=== PATIENT | female | born 1945 | race Hispanic/Latino ===

== ENCOUNTER 2016-12-09 14:11 | Emergency (ER) | payer MEDICARE, OTHER ==
[2016-12-09 14:11] VITALS: BMI 25.6
[2016-12-09 14:22] VITALS: BP 144/63; PULSE 68; RESP 19; TEMP 97.7; O2SAT 100
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
--- NOTE | 2016-12-09 15:20 | RAD ---
HISTORY: pain s/p trauma COMPARISON: No prior FINDINGS: BONES: Normal. No fracture. JOINTS: Normal. No osteoarthritis. SOFT TISSUE: Fifth toe soft tissue swelling. OTHER FINDINGS: None . IMPRESSION: No fracture.
== END 2016-12-09 15:56 | disposition home or self-care (01) ==
LOC: ED 14:11
DX: M79.675 Pain in left toe(s) (principal)

== ENCOUNTER 2017-09-27 12:01 | Emergency (ER) | payer MEDICARE, SELFPAY ==
[2017-09-27 12:01] VITALS: BMI 25.6
[2017-09-27 12:07] VITALS: TEMP 97.8; O2SAT 98
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
[2017-09-27] MEDS ORDERED: guaiFENesin DM 200 mg-20 mg/10 ml UD PO ONE (12:20)
[2017-09-27] MEDS: Albuterol-Ipratrop 3 mg / 0.5 (3 ml) UD IH SCH ×3 (12:34→13:20)
[2017-09-27 12:40] LABS: VENOUS BLOOD GAS BASE EXCESS 2.4 mmol/L (0.0-2.0); VENOUS BLOOD GAS PO2 37 mm/Hg (30-55); VENOUS BLOOD PH 7.32 (7.32-7.43)
[2017-09-27 12:43] LABS: BASO # 0.01 K/mm3 (0.0-2.0); BASO % 0.2 % (0.0-3.0); EOS # 0.1 (0.0-0.7); EOS % 2.1 % (1.5-5.0); GRAN # 3.03 (1.4-6.5); GRAN % 53.8 % (50.0-68.0); HEMOGLOBIN 12.4 g/dL (12.0-16.0); LYMPH # 2.2 (1.2-3.4); LYMPH % 38.4 % (22.0-35.0); MEAN CELL VOLUME 89.1 fl (80.0-105.0); MEAN CORPUSCULAR HEMOGLOBIN 30.2 pg (25.0-35.0); MEAN CORPUSCULAR HGB CONC 33.9 g/dl (31.0-37.0); MEAN PLATELET VOLUME 8.7 fl (7.0-11.0); MONO # 0.3 (0.1-0.6); MONO % 5.5 % (1.0-6.0); RBC 4.11 10^6/uL (3.5-6.1); RED CELL DISTRIBUTION WIDTH 13.8 % (11.5-14.5); WHITE BLOOD COUNT 5.6 10^3/ul (4.5-11.0)
[2017-09-27 12:53] LABS: BLOOD UREA NITROGEN 14 mg/dL (7-21); CALCIUM 10.1 mg/dL (8.4-10.5); GFR AFRICAN-AMERICAN > 60; GFR NON-AFRICAN AMERICAN > 60
[2017-09-27 13:06] LABS: B-TYPE NATRIURETIC PEPTIDE 416 pg/mL (0-450); TROPONIN I < 0.01 ng/mL
--- NOTE | 2017-09-27 13:08 | RAD ---
HISTORY: coughing x 2 weeks, sob today COMPARISON: 02/01/2016 TECHNIQUE: Chest PA and lateral FINDINGS: LUNGS: No active pulmonary disease. PLEURA: No significant pleural effusion identified. No pneumothorax apparent. CARDIOVASCULAR: Normal. OSSEOUS STRUCTURES: Sternal wires VISUALIZED UPPER ABDOMEN: Normal. OTHER FINDINGS: None. IMPRESSION: No active disease.
[2017-09-27 14:09] VITALS: BP 140/54; PULSE 102; RESP 20
--- NOTE | 2017-09-28 23:37 | CARD ---
APPROVED REPORT EKG Measurement Heart [id number] DC [id number] <Conclusion> Sinus rhythm with short DC Otherwise normal ECG
== END 2017-09-27 14:11 | disposition home or self-care (01) ==
LOC: ED 12:01
DX: J45.909 Unspecified asthma, uncomplicated (principal); R07.89 Other chest pain

== ENCOUNTER 2017-10-23 16:50 | Emergency (ER) | payer MEDICARE, SELFPAY ==
[2017-10-23 16:50] VITALS: BMI 25.6
[2017-10-23 17:00] VITALS: BP 182/66; PULSE 62; RESP 16; TEMP 97.9; O2SAT 100
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
--- NOTE | 2017-10-23 18:29 | RAD ---
PROCEDURE: Left Wrist Radiographs. HISTORY: fall r/o fx COMPARISON: None. FINDINGS: BONES: There is no acute displaced fracture or bone destruction. Bone alignment is normal. There is periarticular bone demineralization. JOINTS: Normal. No dislocation. SOFT TISSUES: Normal. OTHER FINDINGS: None. IMPRESSION: No acute fracture or dislocation.
--- NOTE | 2017-10-23 18:30 | RAD ---
PROCEDURE: Left Hand Radiographs. HISTORY: fall r/o fx COMPARISON: None. FINDINGS: BONES: There is no acute displaced fracture or bone destruction. Bone alignment is normal. There is diffuse bone demineralization. JOINTS: Normal. SOFT TISSUES: Normal. OTHER FINDINGS: None. IMPRESSION: No acute fracture or dislocation.
== END 2017-10-23 18:06 | disposition home or self-care (01) ==
LOC: ED 16:50
DX: S63.502A Unspecified sprain of left wrist, initial encounter (principal); W01.0XXA Fall on same level from slipping, tripping and stumbling without subsequent striking against object, initial encounter; I10 Essential (primary) hypertension; E03.9 Hypothyroidism, unspecified

== ENCOUNTER 2018-05-12 12:04 | Inpatient (IN) | payer MEDICARE, OTHER ==
[2018-05-12] MEDS ORDERED: Lidocaine 5% Patch TD ONE (12:47)
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
[2018-05-12 14:35] LABS: ALB/GLOB RATIO 1.3 (1.1-1.8); ALBUMIN 3.8 g/dL (3.0-4.8); ALT/SGPT 24 U/L (7-56); AST/SGOT 33 U/L (14-36); BLOOD UREA NITROGEN 11 mg/dL (7-21); CALCIUM 8.6 mg/dL (8.4-10.5); GFR NON-AFRICAN AMERICAN > 60
--- NOTE | 2018-05-12 14:35 | CT ---
Date of service: 05/12/2018 PROCEDURE: CT Cervical Spine without contrast HISTORY: fall COMPARISON: None available. TECHNIQUE: Axial computed tomography images were obtained of the cervical spine without the use of intravenous contrast. Coronal and sagittal reformatted images were created and reviewed. Radiation dose: Total exam DLP = 542.3 mGy-cm. This CT exam was performed using one or more of the following dose reduction techniques: Automated exposure control, adjustment of the mA and/or kV according to patient size, and/or use of iterative reconstruction technique. FINDINGS: VERTEBRAE: No fracture. Normal alignment. No destructive bony lesion. DISCS/SPINAL CANAL/NEURAL FORAMINA: No significant central canal or neural foraminal stenosis. Disc degeneration at C5-6 and C6-7 PARASPINAL SOFT TISSUES: Unremarkable. OTHER FINDINGS: None. IMPRESSION: No acute findings
--- NOTE | 2018-05-12 14:35 | CT ---
Date of service: 05/12/2018 PROCEDURE: CT HEAD WITHOUT CONTRAST. HISTORY: dizziness COMPARISON: 05/10/2016 TECHNIQUE: Axial computed tomography images were obtained through the head/brain without intravenous contrast. Radiation dose: Total exam DLP = 993.59 mGy-cm. This CT exam was performed using one or more of the following dose reduction techniques: Automated exposure control, adjustment of the mA and/or kV according to patient size, and/or use of iterative reconstruction technique. FINDINGS: HEMORRHAGE: No intracranial hemorrhage. BRAIN: No mass effect or edema. Severe chronic microvascular changes are seen in the periventricular white matter. There is focal encephalomalacia in the right frontal lobe VENTRICLES: Unremarkable. No hydrocephalus. CALVARIUM: Unremarkable. PARANASAL SINUSES: Unremarkable as visualized. No significant inflammatory changes. MASTOID AIR CELLS: Unremarkable as visualized. No inflammatory changes. OTHER FINDINGS: None. IMPRESSION: Severe chronic microvascular changes. No acute intracranial findings
[2018-05-12 14:41] LABS: BASO # 0.01 K/mm3 (0.0-2.0); BASO % 0.2 % (0.0-3.0); EOS # 0.1 (0.0-0.7); EOS % 1.8 % (1.5-5.0); GRAN # 2.86 (1.4-6.5); GRAN % 56.1 % (50.0-68.0); HEMOGLOBIN 11.7 g/dL (12.0-16.0); LYMPH # 1.8 (1.2-3.4); LYMPH % 35.2 % (22.0-35.0); MEAN CELL VOLUME 88.8 fl (80.0-105.0); MEAN CORPUSCULAR HEMOGLOBIN 29.8 pg (25.0-35.0); MEAN CORPUSCULAR HGB CONC 33.5 g/dl (31.0-37.0); MEAN PLATELET VOLUME 9.4 fl (7.0-11.0); MONO # 0.3 (0.1-0.6); MONO % 6.7 % (1.0-6.0); RBC 3.93 10^6/uL (3.5-6.1); RED CELL DISTRIBUTION WIDTH 13.7 % (11.5-14.5); WHITE BLOOD COUNT 5.1 10^3/uL (4.5-11.0)
[2018-05-12 14:47] LABS: TROPONIN I < 0.01 ng/mL
[2018-05-12 15:43] LABS: INR 1.12; PROTHROMBIN TIME 12.8 SECONDS (9.4-12.5)
--- NOTE | 2018-05-12 17:08 | CARD ---
APPROVED REPORT Date of service: 05/12/2018 EKG Measurement Heart [id number] <Conclusion> Sinus bradycardia Otherwise normal ECG
[2018-05-12 17:51] VITALS: BMI 26.5
--- NOTE | 2018-05-12 22:21 | HP ---
DATE OF EXAM: HISTORY OF PRESENT ILLNESS: The patient is a 73-year-old female of origin. The patient is seen in the emergency room. She presented with ataxia, unstable gait, and weakness as patient denies any history of chest pain. She has no headache and the patient's past history significant that she has history of coronary artery disease. The patient has had treatment for ruptured aortic aneurysm of the ascending aorta repaired several years ago. The patient has past history of bariatric surgery. She has history of anastomotic ulcer secondary to bariatric surgery at the anastomotic site. 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 The patient also has a history of gastritis. SOCIAL HISTORY: She does not smoke and does not drink alcohol. ALLERGIES: SHE HAS ALLERGY TO INDOMETHACIN WHICH IS INDOCIN. SHE HAS ALLERGY TO IODINE CONTAINING DYES, CONTRAST MEDIA. PHYSICAL EXAMINATION GENERAL: The patient says that she feels better, lying down in bed in the emergency room. The patient is able to answer all questions. HEENT: On examination, her head is normocephalic. No masses or defects are noted. NECK: Thyroid is not enlarged. The patient's JVP is flat. Carotid pulses are present bilaterally. HEART: Normal sinus rhythm. S1 and S2 present. No murmurs. LUNGS: Trachea central. Breath sounds are vesicular. No adventitious sounds are heard. ABDOMEN: Soft. Liver and spleen not palpable. No organomegaly. RECTAL: The patient's rectal examination is deferred. CENTRAL NERVOUS SYSTEM: The patient is conscious, rational, and oriented. Cranial nerves II through XII intact. Sensory and motor functions are not completely abnormal. The patient has ataxia, consisted of cerebral dysfunction. There are no focal neurological deficits. LABORATORY DATA: The patient's blood work done in the emergency room, the hemoglobin is 11.7. The patient's chemistry; the blood sugar is 111, BUN and creatinine are within normal range. The patient's liver enzymes are normal. The patient will be admitted for observation, because she is not able to ambulate with poor balance and abnormal gait. Neurological evaluation will be done by Dr. Segura. She will also have cardiac evaluation because of her past medical history. MEDICATIONS: She was on Synthroid 25 mcg daily, potassium 20 mEq daily, aspirin 81 mg daily, and enalapril 10 mg daily. The patient was on amlodipine 2.5 mg daily. DIET: Heart healthy diet. Condition clinically stable and overall prognosis is guarded. Gloria Ling MD [id number]
[2018-05-13] MEDS ORDERED: Pantoprazole 20 mg EC Tab PO SCH (06:00)
[2018-05-13 06:32] LABS: BLOOD UREA NITROGEN 9 mg/dL (7-21); CALCIUM 8.1 mg/dL (8.4-10.5); GFR NON-AFRICAN AMERICAN > 60
[2018-05-13 06:40] LABS: BASO # 0.01 K/mm3 (0.0-2.0); BASO % 0.3 % (0.0-3.0); EOS # 0.2 (0.0-0.7); EOS % 3.9 % (1.5-5.0); GRAN # 1.85 (1.4-6.5); GRAN % 47.7 % (50.0-68.0); LYMPH # 1.5 (1.2-3.4); LYMPH % 39.8 % (22.0-35.0); MEAN CORPUSCULAR HGB CONC 34.1 g/dl (31.0-37.0); MEAN PLATELET VOLUME 9.3 fl (7.0-11.0); MONO # 0.3 (0.1-0.6); MONO % 8.3 % (1.0-6.0); RBC 3.67 10^6/uL (3.5-6.1); RED CELL DISTRIBUTION WIDTH 13.7 % (11.5-14.5); WHITE BLOOD COUNT 3.9 10^3/uL (4.5-11.0)
[2018-05-13] MEDS: Levothyroxine 25 MCG TAB PO SCH (08:28)
[2018-05-13] MEDS: Potassium Chloride 20 mEq ER Tab PO SCH (10:02)
[2018-05-13] MEDS ORDERED: Alum-Mag Hydrox-Simethicone Susp (30 mL) PO PRN (10:16)
--- NOTE | 2018-05-13 12:18 | PN ---
DATE: 05/13/2018 SUBJECTIVE: The patient is in [facility] in [place], room 372, bed 2. The patient is a 73-year-old female. She is of origin. She has been seen this morning. She was admitted with weakness, ataxia, unstable gait. The patient has past history of osteoarthritis involving the cervical, thoracic spine. The patient has history of repair of ruptured aortic aneurysm, ascending aorta. Many years ago, the patient had coronary artery disease and angioplasty. The patient has history of bariatric surgery for obesity. She has a history of anastomotic ulcer with gastritis. The patient is still complaining of weakness and she says she has a cough. She also complains of mild headache. PHYSICAL EXAMINATION: VITAL SIGNS: The pulse is ranging from 47-63, the patient's blood pressure 128/43, O2 sat is 96% on room air. HEENT: The patient's head is normocephalic. No injuries noted. NECK: The thyroid is not enlarged. She is mildly hypothyroid. LUNGS: Trachea central. Breath sounds are vesicular. No adventitious sounds. HEART: Normal sinus rhythm. Sinus bradycardia. ABDOMEN: Soft. Liver and spleen not palpable. CHIMNEY MECHANIC: No focal deficits are noted. LABORATORY DATA: The hemoglobin was 11. The patient's chemistry was unremarkable. Basically, the blood sugar was 134. It is dropped to 91 today. The patient's urine is not noted. ASSESSMENT AND PLAN: The patient is being evaluated by neurologist. We will have a printer assistant see the patient also because of the transient bradycardia. The patient will need a urinalysis done and also sputum study. The patient's CBC shows significant increase of lymphocytes with monocytes. This is suggestive of viral infection. However, we will do the Carlos Bucio virus study also. We will wait for the neurologist to evaluate the patient and then we can consider the patient for further treatment in subacute rehabilitation or maybe Transitional Care Unit. Gloria Ling MD [facility]
[2018-05-13 12:34] LABS: PH,URINE 6.5 (4.7-8.0); URINE APPEARANCE CLEAR (CLEAR); URINE BILIRUBIN NEGATIVE (NEGATIVE); URINE BLOOD NEGATIVE (NEGATIVE); URINE COLOR YELLOW (YELLOW); URINE GLUCOSE (UA) NEGATIVE (NEGATIVE); URINE LEUKOCYTE ESTERASE NEGATIVE Leu/uL (NEGATIVE); URINE PROTEIN NEGATIVE mg/dL (<30 mg/dL); URINE UROBILINOGEN 0.2 E.U./dL (<1 E.U./dL)
[2018-05-13] MEDS: Pantoprazole 40 mg EC Tab PO SCH (15:50)
--- NOTE | 2018-05-13 19:18 | CON ---
DATE: 05/13/2018 CHIEF COMPLAINT: Generalized weakness, lightheadedness. HISTORY OF PRESENT ILLNESS: This is a 73-year-old woman with history of aortic stenosis since 2002, history of degenerative joint disease of the cervicothoracic area, history of bariatric surgery, osteoarthritis, who presented also with complaint of generalized weakness and very fatigued and mild lightheadedness. CAT scan had showed acute abnormalities of the cervical spine. CT showed C5-C6 to T6-T7 disk degeneration; otherwise, no focal neurological weakness or deficits seen on neuro exam. She was on aspirin 81 mg for stroke prevention. Otherwise, her labs are pretty normal. Orthostatics were normal. There is a small bradycardia of 55, lowest being 51. PAST MEDICAL HISTORY: As above. SOCIAL HISTORY: No illicit drug use, smoking, or EtOH abuse. MEDICATIONS: Reviewed by nurse's reconciliation sheet. ALLERGIES: INDOMETHACIN. FAMILY HISTORY: Noncontributory. REVIEW OF SYSTEMS: A 14-point review of systems is negative except as per the HPI. LABORATORY DATA: Sodium is 133, potassium 4.3, chloride 102, carbon dioxide 36, BUN of 19, creatinine 1. Random glucose 91. PHYSICAL EXAMINATION: GENERAL: The patient is sitting up in bed, in no acute distress. VITAL SIGNS: Temperature 98.2, pulse rate 54, blood pressure 135/44, respiratory rate 18, oxygen saturation 90% on room air. HEENT: Atraumatic, normocephalic. PERRLA. Extraocular muscles intact. NECK: Supple. No JVD. No adenopathy noted. LUNGS: Clear to auscultation. No adventitious sounds. HEART: S1 and S2. Normal rate and rhythm. No murmurs, rubs, or gallops. ABDOMEN: Soft, nontender, and nondistended. Bowel sounds are heard. EXTREMITIES: No clubbing. No cyanosis. Peripheral pulses 2+ felt bilaterally. NEUROLOGICAL: The patient is alert and oriented to person, place, month, and year. Speech is fluent without any errors. Cranial nerves II through XII intact. Motor: Moves all extremities equally. Toes are downgoing bilaterally. Sensory: Light touch, pinprick , proprioception, and vibration are intact. DTRs are 2+ throughout. Coordination and gait intact. IMPRESSION AND PLAN: This is a 73-year-old woman with a history of aortic dissection, osteoarthritis of the cervical area and thoracic spine as well osteoarthritis, came with generalized weakness and lightheadedness, lightheadedness seems more in addition to underlying fatigue from underlying mal-deconditioned state otherwise overall neuro exam is nonfocal. At this time, recommend: 1. B complex and vitamins daily. 2. B12 injections. 3. Physical therapy as an outpatient for muscle strengthening and could followup as an outpatient with me. She is clinically stable. Boo Segura MD
[2018-05-14 00:25] VITALS: RESP 20
[2018-05-14] MEDS: Pantoprazole 40 mg EC Tab PO SCH (05:25)
[2018-05-14] MEDS: Levothyroxine 25 MCG TAB PO SCH (05:25)
[2018-05-14 07:16] VITALS: BP 129/50; TEMP 97.6; O2SAT 98
--- NOTE | 2018-05-14 08:08 | CP.PCM.CON ---
History of Present Illness - History of Present Illness History of Present Illness: awake, alert, oriented, no distress, denies chest pain, denies dizziness now Reason for consultation: Cardiac evaluation of dizziness, history of aortic dissection with repair in 2002/ CABG x 1 at [facility]. Brief history of present illness: A 73 year old female who came in to the ER due to dizziness, generalized weakness and left sided neck pain for the past 2 days. denies chest pain or shortness of breath. History of aortic dissection with repair and CABG x 1 in 2002 at [facility]. History of pneumonia,CVA, no deficits, hypertension,hypothyroidism,arthritis, cholecystectomy, GERD, gastric bypass 2004. Seen and examined by me and Dr. Valenzuela Review of Systems - Review of Systems All systems: reviewed and no additional remarkable complaints except Review of Systems: as per HPI Past Patient History - Infectious Disease Hx of Infectious Diseases: None - Tetanus Immunizations Tetanus Immunization: Up to Date - Past Medical History & Family History Past Medical History?: Yes - Past Social History Smoking Status: Never Smoked - CARDIAC Hx Cardiac Disorders: Yes Hx Hypertension: Yes Other/Comment: AORTIC ANEURYSM, AORTIC DISSECTION 2002. CAD, OPEN HEART SURGERY, HYPERLIPIDEMIA - PULMONARY Hx Respiratory Disorders: Yes Hx Pneumonia: Yes - NEUROLOGICAL Hx Neurological Disorder: Yes HX Cerebrovascular Accident: Yes (20 yrs ago no deficits) - HEENT Hx HEENT Problems: Yes (wears eyeglasses) Hx Glaucoma: Yes - RENAL Hx Chronic Kidney Disease: No - ENDOCRINE/METABOLIC Hx Endocrine Disorders: Yes Hx Hypothyroidism: Yes - HEMATOLOGICAL/ONCOLOGICAL Hx Blood Disorders: No - INTEGUMENTARY Hx Dermatological Problems: No - MUSCULOSKELETAL/RHEUMATOLOGICAL Hx Arthritis: Yes Other/Comment: RIGHT ARM SURGERY - GASTROINTESTINAL Hx Gastrointestinal Disorders: Yes Hx Gall Bladder Disease: Yes (CHOLECYSTECTOMY 2 YRS AGO) Hx Gastroesophageal Reflux: Yes Other/Comment: GASTRIC BYPASS 2004, BOWEL OBSTRUCTION. C-DIFF (2 YEARS AGO). - GENITOURINARY/GYNECOLOGICAL Hx Genitourinary Disorders: No - PSYCHIATRIC Hx Psychophysiologic Disorder: Yes - SURGICAL HISTORY Hx Cardiac Catheterization: Yes (11/09/13) Hx Gastric Bypass Surgery: Yes Hx Musculoskeletal Surgery: Yes (R arm) Hx Open Heart Surgery: Yes Other/Comment: AAA REPAIR - ANESTHESIA Hx Anesthesia: Yes Hx Anesthesia Reactions: No Hx Malignant Hyperthermia: No Meds Allergies/Adverse Reactions: Allergies Allergy/AdvReac Type Severity Reaction Status Date / Time indomethacin [From Indocin] Allergy DIZZINESS Verified 10/23/17 16:54 indomethacin sodium Allergy DIZZINESS Verified 10/23/17 16:54 [From Indocin] Iodine and Iodide Containing Allergy ANAPHYLAXIS Verified 10/23/17 16:54 Produc contrast Allergy ANAPHYLAXIS Uncoded 10/23/17 16:54 - Medications Medications: Current Medications Al Hydrox/Mg Hydrox/Simethicone (Maalox Plus 30 Ml) 30 ml PO DAILY PRN PRN Reason: Indigestion / Heartburn Last Admin: 05/13/18 10:26 Dose: 30 ml Amlodipine Besylate (Norvasc) 2.5 mg PO DAILY [facility] Last Admin: 05/13/18 10:25 Dose: 2.5 mg Aspirin (Ecotrin) 81 mg PO DAILY [facility] Last Admin: 05/13/18 10:00 Dose: 81 mg Azithromycin (Zithromax) 500 mg PO DAILY [facility]; Protocol Last Admin: 05/13/18 09:57 Dose: 500 mg Levothyroxine Sodium (Synthroid) 25 mcg PO 0600 [facility] Last Admin: 05/14/18 05:25 Dose: 25 mcg Pantoprazole Sodium (Protonix Ec Tab) 40 mg PO 0600,1600 [facility] Last Admin: 05/14/18 05:25 Dose: 40 mg Potassium Chloride (K-Dur 20 Meq Er Tab) 20 meq PO DAILY [facility] Last Admin: 05/13/18 10:02 Dose: 20 meq Ramipril (Altace) 10 mg PO DAILY [facility] Last Admin: 05/13/18 10:25 Dose: 10 mg Zolpidem Tartrate (Ambien) 5 mg PO HS [facility]; Protocol Last Admin: 05/13/18 21:46 Dose: 5 mg Physical Exam - Constitutional Appears: Non-toxic, No Acute Distress - Head Exam Head Exam: NORMAL INSPECTION, NORMOCEPHALIC - Eye Exam Eye Exam: Normal appearance - ENT Exam ENT Exam: Mucous Membranes Moist, Normal Exam - Respiratory Exam Respiratory Exam: Clear to Auscultation Bilateral, NORMAL BREATHING PATTERN - Cardiovascular Exam Cardiovascular Exam: Bradycardia, +S1, +S2 Additional comments: Telemetry SB 50's - GI/Abdominal Exam GI & Abdominal Exam: Normal Bowel Sounds, Soft - Extremities Exam Extremities exam: Positive for: full ROM, normal capillary refill - Neurological Exam Neurological exam: Alert, Oriented x3 - Psychiatric Exam Psychiatric exam: Normal Affect, Normal Mood - Skin Skin Exam: Dry, Normal Color, Warm Results - Vital Signs Recent Vital Signs: Last Vital Signs Temp 97.6 F 05/14/18 06:00 Pulse 51 L 05/14/18 06:00 Resp 20 05/14/18 06:00 BP 129/50 L 05/14/18 06:00 Pulse Ox 98 05/14/18 06:00 - Labs Result Diagrams: 05/13/18 06:00 05/13/18 06:00 Labs: Laboratory Results - last 24 hr 05/13/18 12:26 Urine Color Yellow Urine Appearance Clear Urine pH 6.5 Ur Specific [place] <= 1.005 Urine Protein Negative Urine Glucose (UA) Negative Urine Ketones Negative Urine Blood Negative Urine Nitrate Negative Urine Bilirubin Negative Urine Urobilinogen 0.2 Ur Leukocyte Esterase Negative Assessment & Plan - Assessment and Plan (Free Text) Assessment: A 73 year old female who came in to the ER due to dizziness, generalized weakness and left sided neck pain for the past 2 days. denies chest pain or shortness of breath. History of aortic dissection repair and CABG x 1 in 2002 at [facility]. history of pneumonia,CVA, no deficits, hypertension,hypothyroidism,arthritis, cholecystectomy, GERD, gastric bypass 2004. Troponin negative, EKG -Sinus Bradycardia, no evidence of ischemia. Rule out orthostatic hypotension. will order orthostatic vital signs. Will repeat Echo to evaluate LV function. Previous cardiac work up: 06/11/13- Normal Stress Test 11/09/[address] Valenzuela Status post aortic dissection repair and one vessel CABG, SVG to RCA Mild disease in LAD and CX system, occluded RCA in aortic dissection, Patent SVG to RCA but RPDA bifurcated and upper division has 70 % stenosis not suitable for for PCI No significant changes from previous cardiac cath on 05/05/12. 09/07/14- ECHO done- normal LV size, LVEF 60-65% Moderate aortic regurgitation/mitral regurgitation/tricuspid regurgitation no thrombus Plan: Echo to evaluate LV function Heart rate stable, Sinus bradycardia, no betablocker Blood pressure controlled Orthostatic vital signs On Norvasc 2.5 mg daily,Syntroid 25 mcg daily,altace 10 mg daily Continue current treatment Continue current medications TSH, lipid panel and HbgA1C level ordered Further recommendations during hospital course Chart reviewed Will follow up Plan and treatment discussed with Dr. Valenzuela Thank you Dr. Ling for the opportunity of taking care of Natali Chacon. - Date & Time Date: 05/14/18 Time: 06:40
[2018-05-14] MEDS: Potassium Chloride 20 mEq ER Tab PO SCH (09:29)
--- NOTE | 2018-05-14 10:12 | CARD ---
APPROVED REPORT Date of service: 05/14/2018 EKG Measurement Heart [id number] <Conclusion> Normal sinus rhythm Normal ECG
[2018-05-14 10:49] VITALS: PULSE 72
--- NOTE | 2018-05-14 11:40 | PN ---
DATE: 05/14/2018 SUBJECTIVE: The patient is in [facility] in [place]. Patient was admitted with weakness, ataxia, difficulty to walk. The patient has a significant past history of severe degenerative arthritis involving the cervical and thoracic spine. Patient also has a history of surgery for ruptured ascending aortic aneurysm. Patient has history of coronary artery disease, history of bariatric surgery for morbid obesity. Patient is also treated for hypertension, peptic ulcer disease, having an ulcer at the anastomotic site. The patient developed ___ also PHYSICAL EXAMINATION: VITAL SIGNS: This morning, pulse is 51, blood pressure ranges from 137 systolic to 130 systolic, patient's O2 sat is 98%. The heart rate is slow in the 50s, but patient does not have any significant cardiac manifestation. Patient was seen by the Cardiology group and she is going to have an echocardiogram today. HEART: Normal sinus rhythm. LUNGS: Clear. ABDOMEN: Soft. Liver and spleen not palpable. CENTRAL NERVOUS SYSTEM: No focal deficits. Patient's ambulation is improved. Her dizziness and ataxia has improved. Patient had a neurological evaluation, she is cleared by the neurologist. Cariology has advised to have an echocardiogram and the patient can be discharged home after further evaluation. LABORATORY DATA: Patient's blood work; hemoglobin remains the same around 11. Patient's chemistries basically done on 05/13/2018, they are within normal range. Patient will probably be discharged after the echocardiogram with followup as an outpatient. MEDICATIONS: List of medications: The patient is on Altace 10 mg daily, patient is on Ambien 5 mg at bedtime for sleep, aspirin 81 mg daily, potassium chloride 20 mEq daily, amlodipine 2.5 mg daily, pantoprazole 40 mg daily, Synthroid 25 mcg daily. Patient is on azithromycin for upper respiratory infection; we will continue that. ASSESSMENT AND PLAN: Patient will call the office for followup appointment. Gloria Ling MD [facility]
--- NOTE | 2018-05-14 18:48 | CARD ---
APPROVED REPORT Date of service: 05/14/2018 EXAM: Two-dimensional and M-mode echocardiogram with Doppler and color Doppler. INDICATION LVFX 2D DIMENSIONS Left Atrium (2D)4.9 (1.6-4.0cm)IVSd1.1 (0.7-1.1cm) LVDd4.5 (3.9-5.9cm)PWd1.2 (0.7-1.1cm) LVDs3.0 (2.5-4.0cm)FS (%) 32.8 % LVEF (%)61.4 (>50%) M-Mode DIMENSIONS Aortic Root2.90 (2.2-3.7cm)Aortic Cusp Exc.1.70 (1.5-2.0cm) Aortic Valve AoV Peak Uwqjjolz148.0cm/Yanci Peak GR.12mmHgLVOT Peak Wprnkbdw85.8cm/s LVOT VTI25.70cmAI P 1/2 [id number] Mitral Valve MV E Zhuktuds688.0cm/sMV A Zsvumydf29.9cm/sE/A ratio1.5 TDI Lateral E' Peak V12.30cm/sMedial E' Peak V10.40cm/sE/Lateral E'9.9 E/Medial E'11.7 Pulmonary Valve PV Peak Ivaudqgj00.4cm/sPV Peak Grad.3mmHg Tricuspid Valve TR Peak Wbfizclo838ut/sRAP ZJLJKTPU36peWzYC Peak Gr.23mmHg [id number] LEFT VENTRICLE The left ventricle is normal size. There is borderline to mild concentric left ventricular hypertrophy. The left ventricular function is normal.EF-60-65% There is normal LV segmental wall motion. Transmitral Doppler flow pattern is Grade II-pseudonormal filling dynamics. No left ventricle thrombus noted on this study. There is no ventricular septal defect visualized. There is no left ventricular aneurysm. There is no mass noted in the left ventricle. RIGHT VENTRICLE The right ventricle is normal size. There is normal right ventricular wall thickness. The right ventricular systolic function is normal. ATRIA The left atrium is mildly dilated. The right atrium size is normal. The interatrial septum is intact with no evidence for an atrial septal defect. AORTIC VALVE The aortic valve is thickened but opens well. The aortic valve is mildly to moderately sclerotic. There is moderate aortic regurgitation. There is no aortic valvular stenosis. There is no aortic valvular vegetation. MITRAL VALVE The mitral valve is thickened but opens well. Mitral annular calcification is mild. Mitral regurgitation is mild to moderate., Multiple Jets. There is no mitral valve stenosis. There is no evidence of mitral valve prolapse. TRICUSPID VALVE The tricuspid valve leaflets are thickened , but open well. There is mild tricuspid regurgitation.RVSP-33 mmof hg. There is no tricuspid valve stenosis. There is no tricuspid valve prolapse or vegetation. PULMONIC VALVE The pulmonary valve is normal in structure. There is trace pulmonic valvular regurgitation. There is no pulmonic valvular stenosis. GREAT VESSELS The aortic root is normal in size. The ascending aorta is normal in size, But Asc aortic wall is thick c/w with repair(( Hx of aortic dissection and repair) The pulmonary artery is normal. The IVC is normal in size and collapses >50% with inspiration. PERICARDIAL EFFUSION There is no pleural effusion. There is no pericardial effusion. <Conclusion> The left ventricle is normal size. There is borderline to mild concentric left ventricular hypertrophy. The left ventricular function is normal.EF-60-65% There is moderate aortic regurgitation. Mitral regurgitation is mild to moderate., Multiple Jets. There is mild tricuspid regurgitation.RVSP-33 mmof hg. The IVC is normal in size and collapses >50% with inspiration. There is no pericardial effusion. The ascending aorta is normal in size, But Asc aortic wall is thick c/w with repair(( Hx of aortic dissection and repair) No vegetation or thrombus noted.
--- NOTE | 2018-05-15 04:19 | DS ---
HISTORY OF PRESENT ILLNESS: This is a 73-year-old female with history of coronary artery disease, ruptured aortic aneurysm of ascending order several years ago, bariatric surgery, anastomotic ulcer, anemia, osteoarthritis involving the cervical spine, thoracic spine, and history of gastritis, presented to the emergency room with unsteady gait, ataxia and weakness for several days. HOSPITAL COURSE: The patient was placed on remote telemetry. She was seen by both Neurology and Cardiology. CAT scan of head was done, which did not show any acute abnormalities. CT of the head was done, which did not show anything acute. Echocardiogram was done, which showed EF 60% to 65%, moderate aortic regurgitation, [id number] mitral regurgitation. The patient was cleared by Neurology and Cardiology for discharge. She also received IV fluids. Her condition improved. She complained of cough while in the hospital and was started on Zithromax for upper respiratory infection. The patient was discharged in improved condition. DISCHARGE DIAGNOSES: 1. Generalized weakness. 2. Ataxia. 3. History of aortic dissection. 4. History of bariatric surgery. 5. Hypertension. 6. Gastritis. 7. History of anastomotic ulcer. DISCHARGE MEDICATIONS: Aspirin 81 mg once a day, potassium 20 mEq daily, Nexium 40 mg daily, ramipril 5 mg daily, Synthroid 25 mcg daily, Norvasc 2.5 mg daily, Zithromax 500 mg once a day for 5 days. FOLLOWUP: The patient will followup in the office in one week. Deborah Ling MD
--- NOTE | 2018-05-15 08:43 | CON ---
DATE: 05/14/2018 Consult already dictated by Sadia Lowery APN. Patient who has a known hypertension, known COPD, and known to have surgery for dissection of thoracic aortic aneurysm in the past, was admitted with feeling weakness in the legs, tired, nausea, and patient was found to have sinus bradycardia; however, patient denies any chest pain, shortness of breath, or palpitations. Patient on monitor, but from bradycardia point of view, he is asymptomatic. Patient's echo has been ordered. Troponin negative. Patient had one episode of epigastric discomfort and nausea with vomiting. So, probably patient's symptoms are related to GI. The patient is symptomatic from bradycardia. We will continue present therapy and echo will be done today. We will follow the echo report. Patient already on monitor. When patient's symptoms are improved, then we can consider doing the stress test for a further cardiac evaluation as outpatient. Rodo Finch MD
== END 2018-05-14 12:29 | disposition home or self-care (01) | DRG 552 ==
LOC: ED 12:04 → ERH 15:09 → 3RSO 16:58 → OBSVTOIN 05-13 15:04
PROVIDERS: ADMIT Internal Medicine; ATTEND Internal Medicine
DX: M47.812 Spondylosis without myelopathy or radiculopathy, cervical region (principal); R00.1 Bradycardia, unspecified; I25.10 Atherosclerotic heart disease of native coronary artery without angina pectoris; E03.9 Hypothyroidism, unspecified; I10 Essential (primary) hypertension; Z87.11 Personal history of peptic ulcer disease; R27.0 Ataxia, unspecified; Z98.84 Bariatric surgery status; Z86.73 Personal history of transient ischemic attack (TIA), and cerebral infarction without residual deficits; E78.5 Hyperlipidemia, unspecified; H40.9 Unspecified glaucoma; I08.3 Combined rheumatic disorders of mitral, aortic and tricuspid valves; J06.9 Acute upper respiratory infection, unspecified; J44.9 Chronic obstructive pulmonary disease, unspecified; K21.9 Gastro-esophageal reflux disease without esophagitis; K29.70 Gastritis, unspecified, without bleeding; Z79.82 Long term (current) use of aspirin; Z86.79 Personal history of other diseases of the circulatory system; Z87.01 Personal history of pneumonia (recurrent); Z95.1 Presence of aortocoronary bypass graft; Z88.8 Allergy status to other drugs, medicaments and biological substances; Z91.041 Radiographic dye allergy status; Z90.49 Acquired absence of other specified parts of digestive tract; Z87.892 Personal history of anaphylaxis

== ENCOUNTER 2018-08-08 18:12 | Inpatient (IN) | payer MEDICARE, OTHER ==
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
[2018-08-08 20:21] LABS: BASO # 0.01 K/mm3 (0.0-2.0); BASO % 0.1 % (0.0-3.0); EOS # 0.1 (0.0-0.7); EOS % 1.3 % (1.5-5.0); HEMOGLOBIN 12.3 g/dL (12.0-16.0); LYMPH # 2.2 (1.2-3.4); LYMPH % 32.4 % (22.0-35.0); MEAN CORPUSCULAR HGB CONC 33.7 g/dl (31.0-37.0); MEAN PLATELET VOLUME 9.5 fl (7.0-11.0); MONO # 0.4 (0.1-0.6); MONO % 5.7 % (1.0-6.0); RBC 4.1 10^6/uL (3.5-6.1); WHITE BLOOD COUNT 6.7 10^3/uL (4.5-11.0)
[2018-08-08 20:22] LABS: PH,URINE 6.5 (4.7-8.0); URINE APPEARANCE CLEAR (CLEAR); URINE BILIRUBIN NEGATIVE (NEGATIVE); URINE BLOOD NEGATIVE (NEGATIVE); URINE COLOR YELLOW (YELLOW); URINE GLUCOSE (UA) NEGATIVE (NEGATIVE); URINE LEUKOCYTE ESTERASE SMALL Leu/uL (NEGATIVE); URINE PROTEIN NEGATIVE mg/dL (<30 mg/dL); URINE UROBILINOGEN 0.2 E.U./dL (<1 E.U./dL)
[2018-08-08 20:30] LABS: INR 0.99; PARTIAL THROMBOPLASTIN TIME 32.4 Seconds (26.9-38.3)
[2018-08-08 20:31] LABS: ALB/GLOB RATIO 1.5 (1.1-1.8); ALBUMIN 4.5 g/dL (3.0-4.8); BLOOD UREA NITROGEN 16 mg/dL (7-21); CALCIUM 9.5 mg/dL (8.4-10.5); GFR NON-AFRICAN AMERICAN > 60
[2018-08-08 20:31] LABS: URINE RBC 0 - 2 /hpf (0-2)
[2018-08-08 20:32] LABS: URINE AMORPHOUS SEDIMENT FEW /hpf; URINE BACTERIA MOD /hpf
[2018-08-08 20:33] LABS: ALT/SGPT 31 U/L (7-56); AST/SGOT 41 U/L (14-36)
[2018-08-08 20:39] LABS: B-TYPE NATRIURETIC PEPTIDE 412 pg/mL (0-450)
[2018-08-09] MEDS: Oxycodone/Acetaminophen 5/325 mg Tab PO PRN ×3 (02:27→19:15)
[2018-08-09 05:06] VITALS: BMI 27.4
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
[2018-08-09] MEDS ORDERED: Potassium Chloride 20 mEq ER Tab PO SCH (10:00)
[2018-08-09] MEDS: cefTRIAXone 1 gm 1 GM/100 ML BAG IVPB SCH (10:38)
--- NOTE | 2018-08-09 11:13 | CT ---
Date of service: 08/08/2018 PROCEDURE: CT HEAD WITHOUT CONTRAST. HISTORY: Fall with right temporal pain COMPARISON: Correlation made with concurrent CT scan maxillofacial skeleton. Comparison also made with CT scan brain 05/12/2018 TECHNIQUE: Axial computed tomography images were obtained through the head/brain without intravenous contrast. Radiation dose: Total exam DLP = 1088.28 mGy-cm. This CT exam was performed using one or more of the following dose reduction techniques: Automated exposure control, adjustment of the mA and/or kV according to patient size, and/or use of iterative reconstruction technique. FINDINGS: HEMORRHAGE: No acute parenchymal, subarachnoid nor extra-axial hemorrhage. BRAIN: Significant diffuse/confluent chronic white matter ischemic changes seen extending peripherally into the deep and subcortical white matter both cerebral hemispheres. There is also extension of these changes into the white matter tracts of both basal nuclei.. There is also a discrete chronic infarct in the right superior frontal lobe. Note that the possibility of a small hyperacute infarct not excluded. Moderate generalized volume loss Mild vascular calcifications both carotid siphons. VENTRICLES: No obstructive hydrocephalus. CALVARIUM: Calvarium intact. There is large right-sided facial contusion which of predominately overlies the right zygomatic arch with some extension into the superior right pre maxillary soft tissues and right lateral periorbital and temporal regions.. There are age-indeterminate bilateral nasal bone fracture deformities. PARANASAL SINUSES: Unremarkable as visualized. No significant inflammatory changes. MASTOID AIR CELLS: Unremarkable as visualized. No inflammatory changes. OTHER FINDINGS: None. IMPRESSION: No acute intracranial hemorrhage. Significant chronic white matter ischemic changes with extension into the white matter tracts of both basal nuclei. Discrete chronic right frontal lobe infarct. Moderate generalized volume loss. Large right sided facial contusion with extension of swelling into the right super. Pre maxillary soft tissues and right lateral periorbital/temporal regions. Right sided facial soft tissue contusional changes and swelling. No acute calvarial fractures. Age-indeterminate bilateral nasal bone fracture deformities..
--- NOTE | 2018-08-09 13:48 | CT ---
Date of service: 08/08/2018 PROCEDURE: CT MAXILLOFACIAL BONES WITHOUT CONTRAST HISTORY: Fall with right temporal pain COMPARISON: Comparison made with concurrent CT scan brain. TECHNIQUE: Contiguous axial CT images of the maxillofacial bones were obtained. Coronal and sagittal reformats were generated. Radiation dose: Total exam DLP = 864.82 mGy-cm. This CT exam was performed using one or more of the following dose reduction techniques: Automated exposure control, adjustment of the mA and/or kV according to patient size, and/or use of iterative reconstruction technique. FINDINGS: NASAL BONES: There are age-indeterminate bilateral nasal bone fractures. ORBITS: Orbits and contents unremarkable. Globes intact and lenses appropriately located. There are no retrobulbar hemorrhages or collections. Optic nerves and extraocular musculature unremarkable PARANASAL SINUSES/ MASTOIDS: Clear. MAXILLA: There is large right-sided facial contusion which of predominately overlies the right zygomatic arch with some extension into the superior right pre maxillary soft tissues and right lateral periorbital and temporal regions.. There are age-indeterminate bilateral nasal bone fracture deformities. MANDIBLE/ TEMPOROMANDIBULAR JOINTS: Unremarkable. SKULL BASE: Unremarkable. TEMPORAL BONES: Middle ears and mastoid grossly unremarkable. OTHER FINDINGS: None. IMPRESSION: There are age-indeterminate bilateral nasal bone fractures. There is large right-sided facial contusion which of predominately overlies the right zygomatic arch with some extension into the superior right pre maxillary soft tissues and right lateral periorbital and temporal regions..
--- NOTE | 2018-08-09 14:10 | CT ---
Date of service: 2018-08-08 20:52:22 PROCEDURE: CT Cervical Spine without contrast HISTORY: Pleural. COMPARISON: None available. TECHNIQUE: Axial computed tomography images were obtained of the cervical spine without the use of intravenous contrast. Coronal and sagittal reformatted images were created and reviewed. Radiation dose: Total exam DLP = 558.23 mGy-cm. This CT exam was performed using one or more of the following dose reduction techniques: Automated exposure control, adjustment of the mA and/or kV according to patient size, and/or use of iterative reconstruction technique. FINDINGS: VERTEBRAE: Compression fractures nor retropulsed fragments. Vertebral bodies exhibit normal stature. There is very slight posterior subluxation of C3 over C4 exacerbated in appearance by cysts osteophyte arising from the posterior inferior corner of the C3 segment. Remaining vertebral bodies otherwise exhibit normal alignment. Facets normally aligned. DISCS/SPINAL CANAL/NEURAL FORAMINA: Multilevel degenerative spondylosis of the cervical spine. At the C2-C3 level, there is adequate disc height. Small central and bilateral disc bulge appears to reach the ventral surface of the spinal cord. The overall central canal appears adequate. Uncovertebral facets are mildly hypertrophic however no no significant foraminal stenosis. At the C3-C4 level, there is disc space narrowing. Small central and bilateral disc bulge also flattens the ventral surface of the thecal sac and appears to reach the ventral surface of the cord. The overall central canal is slightly narrowed. Uncovertebral facets are mildly overgrown. Exit foramina are adequate on the left and marginal to slightly narrowed on the right. At the C4-C5 level, there is minor posterior disc space narrowing. Small central and bilateral disc bulge also reaches the ventral surface of the spinal cord. Central canal is marginal to minimally narrowed. Uncovertebral facets are hypertrophic with marginal to slightly narrowed bilateral exit foramina. At the C5-C6 level, there is disc space narrowing, endplate eburnation with small central and bilateral disc bulge ridge complex contiguous with hypertrophic uncovertebral joints. Facets hypertrophic right greater than left. The changes result in mild canal narrowing. Exit foramina appear mildly narrowed as well. Similar changes seen at the C6-C7 level. PARASPINAL SOFT TISSUES: Unremarkable. OTHER FINDINGS: Mild chronic biapical pleural thickening. IMPRESSION: No acute fractures. Multilevel degenerative spondylosis as detailed above.
--- NOTE | 2018-08-09 15:25 | CT ---
Date of service: 08/08/2018 PROCEDURE: CT Chest, Abdomen and Pelvis without intravenous contrast HISTORY: History of dissection, aortic aneursym, syncopal episode. COMPARISON: Comparison made with prior CT scan of the abdomen and pelvis dated 05/28/2014 TECHNIQUE: Radiation dose: Total exam DLP = 844.52 mGy-cm. This CT exam was performed using one or more of the following dose reduction techniques: Automated exposure control, adjustment of the mA and/or kV according to patient size, and/or use of iterative reconstruction technique. FINDINGS: CT CHEST WITHOUT CONTRAST: LUNGS: No acute consolidation. Mild atelectasis and/or scarring changes seen in the left posterior lower lung field there is mild scarring changes seen in the middle lobe and lingular regions.. No obvious parenchymal masses. There is a small approximately 5 mm elliptical shaped pleural-based nodule posterior pleural surface superior aspect right lower lobe. Mild biapical pleural thickening. MEDIASTINUM: Sternotomy wires are present. Heart size is within range of normal. No significant pericardial cardial effusion. Calcified atherosclerotic plaque seen along the thoracic and abdominal aorta.. The ascending thoracic aorta measures approximately the 3.0 cm. Proximal descending thoracic aorta measures approximately 2.5 cm. There is mild aneurysmal dilatation of the lower descending thoracic aorta which measures approximately 3.8 x 2.7 cm in greatest dimension and probable concomitant chronic dissection however without contrast material evaluation is for dissection limited. The distal thoracic aortic dilatation (dissection) extends into the proximal upper abdominal aorta. Pulmonary trunk measures approximately 2.8 cm. Trachea midline and patent with no large central endoluminal lesions. LYMPH NODES: No significant mediastinal adenopathy. Evaluation for hilar adenopathy is somewhat limited due to the lack of circulating intravenous contrast material however no large hilar masses identified. There is a small hiatal hernia. PLEURA: Unremarkable. No pneumothorax. No pleural fluid. BONES: Mild multilevel degenerative spondylosis of the thoracic spine. OTHER FINDINGS: None. CT ABDOMEN AND PELVIS: LIVER: Unremarkable. No gross lesion or ductal dilatation. GALLBLADDER AND BILE DUCTS: Cholecystectomy. PANCREAS: Pancreas appears atrophic and fatty replaced. No pancreatic masses collections or calcifications. SPLEEN: Unremarkable. ADRENALS: No adrenal lesions. KIDNEYS AND URETERS: Unremarkable. No hydronephrosis. No solid mass. VASCULATURE: [id number] aortic atherosclerotic calcification or mural plaque present. Mild aneurysmal dilatation of the proximal suprarenal abdominal aorta extending from the distal descending thoracic aorta. BOWEL: Evaluation of the bowel is somewhat limited due to the lack of oral contrast material. Postoperative changes of the stomach. Visualized loops of small bowel exhibit normal contour and caliber. No evidence of acute mechanical small bowel obstruction. There are scattered colonic diverticula seen along the sigmoid and distal descending colon however no radiographic evidence of acute diverticulitis. APPENDIX: No evidence of acute appendicitis PERITONEUM: Unremarkable. No free fluid. No free air. There is a small fat containing ventral wall hernia in the upper at abdomen just below the xiphoid extending inferiorly over short distance. There is also small fat containing umbilical hernia. LYMPH NODES: Unremarkable. No enlarged lymph nodes. BLADDER: Unremarkable. Urinary bladder incompletely distended which in part accounts for thick-walled appearance however correlation with urinalysis to exclude cystitis. REPRODUCTIVE: Unremarkable as visualized. BONES: Mild multilevel degenerative spondylosis of the lower thoracic and lumbar spine.. There is mild joint space narrowing both hip joints. OTHER FINDINGS: None. IMPRESSION: Proximal descending thoracic aorta measures approximately 2.5 cm. There is mild aneurysmal dilatation of the lower descending thoracic aorta which measures approximately 3.8 x 2.7 cm in greatest dimension and probable concomitant chronic dissection however without contrast material evaluation is for dissection limited. The distal thoracic aortic dilatation (dissection) extends into the proximal upper abdominal aorta. Cholecystectomy. Diverticulosis without radiographic evidence of acute diverticulitis. Postoperative changes of stomach likely representing postoperative gastric bypass..
--- NOTE | 2018-08-09 21:27 | CARD ---
APPROVED REPORT Date of service: 08/08/2018 EKG Measurement Heart [id number] KS [id number] <Conclusion> Normal sinus rhythm Nonspecific ST abnormality Abnormal ECG
[2018-08-10] MEDS: Levothyroxine 25 MCG TAB PO SCH (05:41)
[2018-08-10] MEDS: Pantoprazole 40 mg EC Tab PO SCH (05:41)
[2018-08-10 06:58] LABS: BLOOD UREA NITROGEN 22 mg/dL (7-21); CALCIUM 8.4 mg/dL (8.4-10.5); GFR NON-AFRICAN AMERICAN > 60
[2018-08-10 07:07] LABS: BASO # 0.01 K/mm3 (0.0-2.0); BASO % 0.2 % (0.0-3.0); EOS # 0.1 (0.0-0.7); EOS % 1.8 % (1.5-5.0); HEMOGLOBIN 11.1 g/dL (12.0-16.0); LYMPH # 1.6 (1.2-3.4); LYMPH % 28.5 % (22.0-35.0); MEAN CELL VOLUME 89.3 fl (80.0-105.0); MEAN CORPUSCULAR HEMOGLOBIN 29.7 pg (25.0-35.0); MEAN CORPUSCULAR HGB CONC 33.2 g/dl (31.0-37.0); MEAN PLATELET VOLUME 9.9 fl (7.0-11.0); MONO # 0.3 (0.1-0.6); MONO % 6.3 % (1.0-6.0); RBC 3.74 10^6/uL (3.5-6.1); RED CELL DISTRIBUTION WIDTH 14.2 % (11.5-14.5); WHITE BLOOD COUNT 5.4 10^3/uL (4.5-11.0)
--- NOTE | 2018-08-10 08:16 | CP.PCM.PN ---
Subjective - Date & Time of Evaluation Date of Evaluation: 08/10/18 Time of Evaluation: 07:45 - Subjective Subjective: Patient is seen in room 262 bed 1. Objective - Vital Signs/Intake and Output Vital Signs (last 24 hours): Temp Pulse Resp BP Pulse Ox 97.8 F 52 L 18 128/46 L 98 08/10/18 06:00 08/10/18 06:00 08/10/18 06:00 08/10/18 06:00 08/09/18 17:39 Intake and Output: 08/10/18 08/10/18 06:59 18:59 Intake Total 1440 Balance 1440 - Medications Medications: Current Medications Acetaminophen (Tylenol 325mg Tab) 650 mg PO Q4H PRN PRN Reason: Headache Ceftriaxone Sodium (Rocephin 1 Gram Ivpb) 1 gm in 100 mls @ 100 mls/hr IVPB DAILY [facility]; Protocol Last Admin: 08/09/18 10:38 Dose: 100 mls/hr Levothyroxine Sodium (Synthroid) 25 mcg PO 0600 [facility] Last Admin: 08/10/18 05:41 Dose: 25 mcg Oxycodone/Acetaminophen (Percocet 5/325 Mg Tab) 1 tab PO Q4H PRN PRN Reason: Pain, moderate (4-7) Stop: 08/12/18 02:16 Last Admin: 08/09/18 19:15 Dose: 1 tab Pantoprazole Sodium (Protonix Ec Tab) 40 mg PO 0600 [facility] Last Admin: 08/10/18 05:41 Dose: 40 mg Ramipril (Altace) 5 mg PO DAILY [facility] Last Admin: 08/09/18 10:37 Dose: 5 mg - Labs Labs: 08/10/18 05:00 08/10/18 05:00 PT 11.0 SECONDS (9.4-12.5) 08/08/18 20:01 INR 0.99 08/08/18 20:01 APTT 32.4 Seconds (26.9-38.3) 08/08/18 20:01 - Constitutional Appears: No Acute Distress - Head Exam Head Exam: ATRAUMATIC, NORMOCEPHALIC - Respiratory Exam Respiratory Exam: Clear to Ausculation Bilateral, NORMAL BREATHING PATTERN - Cardiovascular Exam Cardiovascular Exam: REGULAR RHYTHM, +S1, +S2 - GI/Abdominal Exam GI & Abdominal Exam: Soft, Normal Bowel Sounds. absent: Tenderness - Extremities Exam Extremities Exam: Normal Inspection - Neurological Exam Neurological Exam: Alert, Awake, Oriented x3 Assessment and Plan - Assessment and Plan (Free Text) Assessment: Syncope Fall H/O aortic dissection H/O bariatric surgery H/O anastamotic ulcer Hypothyroidism Cervical spondylosis 5 mm lung nodule Plan: No acute fractures are seen on CAT scan. Patient with soft tissue swelling and bruising around the right eye. CT Head shows chronic infarct in the right frontal lobe. Small acute infarct cannot be ruled out. Awaiting neurology consultation. Awaiting cardiology consultation. Blood pressure is controlled with Altace 5 mg daily. Heart rate is running in the 50s. Potassium is 4.7 today. Will continue to hold potassium.
[2018-08-10] MEDS: cefTRIAXone 1 gm 1 GM/100 ML BAG IVPB SCH (09:20)
[2018-08-10] MEDS: Oxycodone/Acetaminophen 5/325 mg Tab PO PRN (21:23)
[2018-08-11] MEDS: Levothyroxine 25 MCG TAB PO SCH (05:55)
[2018-08-11] MEDS: Pantoprazole 40 mg EC Tab PO SCH (05:55)
[2018-08-11 06:42] LABS: BASO # 0.01 K/mm3 (0.0-2.0); BASO % 0.2 % (0.0-3.0); EOS # 0.1 (0.0-0.7); EOS % 2.7 % (1.5-5.0); HEMOGLOBIN 10.8 g/dL (12.0-16.0); LYMPH # 1.7 (1.2-3.4); LYMPH % 38.6 % (22.0-35.0); MEAN CORPUSCULAR HEMOGLOBIN 29.6 pg (25.0-35.0); MEAN CORPUSCULAR HGB CONC 33.2 g/dl (31.0-37.0); MEAN PLATELET VOLUME 9.4 fl (7.0-11.0); MONO # 0.4 (0.1-0.6); RBC 3.65 10^6/uL (3.5-6.1); RED CELL DISTRIBUTION WIDTH 14.4 % (11.5-14.5); WHITE BLOOD COUNT 4.5 10^3/uL (4.5-11.0)
[2018-08-11 06:57] LABS: BLOOD UREA NITROGEN 21 mg/dL (7-21); CALCIUM 8.6 mg/dL (8.4-10.5); GFR NON-AFRICAN AMERICAN > 60
--- NOTE | 2018-08-11 09:18 | CON ---
DATE: 08/09/2018 HISTORY OF PRESENT ILLNESS: This is a 73-year-old female, Aniya Thomas, with the past medical history of abdominal aneurysm, hypertension, aortic dissection, hyperlipemia, came with the daughter because patient fell suddenly while walking and not sure if she passed out and hit her face on the floor. No double vision. No numbness, tingling in arms, legs or face. Called to evaluate the patient. PAST MEDICAL HISTORY: As above. SOCIAL HISTORY: Does not smoke and does not drink. PHYSICAL EXAMINATION: VITAL SIGNS: Blood pressure 155/60. HEENT: Normocephalic, atraumatic. NECK: Supple. NEUROLOGIC: Awake, orientated to self. Cranial nerves II to XII are tested. Pupils reactive. EOM intact. No facial asymmetry, except swelling of the right side of the face and bruising was noted on right side of the face and tongue midline. Motor examination; spontaneous movement of the extremities noted and no weakness. Deep tendon reflexes 1+. Plantars are downgoing and sensory appears intact. Cerebellar gait deferred. IMPRESSION: Syncope and fall secondary to above. Denies any loss of consciousness and the CAT scan of the head was negative for bleed and no fracture was seen. We will follow up and workup in progress. Claus Segura MD
[2018-08-11] MEDS: cefTRIAXone 1 gm 1 GM/100 ML BAG IVPB SCH (10:07)
--- NOTE | 2018-08-11 12:20 | CP.PCM.APN ---
Subjective - Date & Time of Evaluation Date of Evaluation: 08/11/18 Time of Evaluation: 09:30 - Subjective Subjective: pt seen sitting up in chair in rm 262.1 pt in NAD pt denies headache or dizziness offers no complaint Review of Systems - Review of Systems All systems: reviewed and no additional remarkable complaints except Objective - Vital Signs/Intake and Output Vital Signs (last 24 hours): Temp Pulse Resp BP Pulse Ox 97.9 F 53 L 18 142/51 L 98 08/11/18 06:00 08/11/18 06:00 08/11/18 06:00 08/11/18 10:07 08/09/18 17:39 Intake and Output: 08/11/18 08/11/18 06:59 18:59 Intake Total 1500 Balance 1500 - Medications Medications: Current Medications Acetaminophen (Tylenol 325mg Tab) 650 mg PO Q4H PRN PRN Reason: Headache Last Admin: 08/10/18 08:16 Dose: 650 mg Ceftriaxone Sodium (Rocephin 1 Gram Ivpb) 1 gm in 100 mls @ 100 mls/hr IVPB DAILY [facility]; Protocol Last Admin: 08/11/18 10:07 Dose: 100 mls/hr Levothyroxine Sodium (Synthroid) 25 mcg PO 0600 [facility] Last Admin: 08/11/18 05:55 Dose: 25 mcg Oxycodone/Acetaminophen (Percocet 5/325 Mg Tab) 1 tab PO Q4H PRN PRN Reason: Pain, moderate (4-7) Stop: 08/12/18 02:16 Last Admin: 08/10/18 21:23 Dose: 1 tab Pantoprazole Sodium (Protonix Ec Tab) 40 mg PO 0600 [facility] Last Admin: 08/11/18 05:55 Dose: 40 mg Ramipril (Altace) 5 mg PO DAILY [facility] Last Admin: 08/11/18 10:07 Dose: 5 mg - Labs Labs: 08/11/18 06:20 08/11/18 06:20 PT 11.0 SECONDS (9.4-12.5) 08/08/18 20:01 INR 0.99 08/08/18 20:01 APTT 32.4 Seconds (26.9-38.3) 08/08/18 20:01 - Constitutional Appears: No Acute Distress - Head Exam Additional comments: right facial contusion - Eye Exam Eye Exam: Normal appearance, PERRL - ENT Exam ENT Exam: Normal Exam - Respiratory Exam Respiratory Exam: NORMAL BREATHING PATTERN - Cardiovascular Exam Cardiovascular Exam: +S1, +S2 - Neurological Exam Neurological Exam: Alert, Awake - Skin Skin Exam: Dry, Intact Assessment and Plan - Assessment and Plan (Free Text) Plan: ITS Impressions Head CT 08/08/18 19:05 IMPRESSION: No acute intracranial hemorrhage. Significant chronic white matter ischemic changes with extension into the white matter tracts of both basal nuclei. Discrete chronic right frontal lobe infarct. Moderate generalized volume loss. Large right sided facial contusion with extension of swelling into the right super. Pre maxillary soft tissues and right lateral periorbital/temporal regions. Right sided facial soft tissue contusional changes and swelling. No acute calvarial fractures. Age-indeterminate bilateral nasal bone fracture deformities.. Cervical Spine CT 08/08/18 19:06 IMPRESSION: No acute fractures. Multilevel degenerative spondylosis as detailed above. Chest/Abdomen/Pelvis CT 08/08/18 19:06 IMPRESSION: Proximal descending thoracic aorta measures approximately 2.5 cm. There is mild aneurysmal dilatation of the lower descending thoracic aorta which measures approximately 3.8 x 2.7 cm in greatest dimension and probable concomitant chronic dissection however without contrast material evaluation is for dissection limited. The distal thoracic aortic dilatation (dissection) extends into the proximal upper abdominal aorta. Cholecystectomy. Diverticulosis without radiographic evidence of acute diverticulitis. Postoperative changes of stomach likely representing postoperative gastric bypass.. Orbit CT 08/08/18 19:06 IMPRESSION: There are age-indeterminate bilateral nasal bone fractures. There is large right-sided facial contusion which of predominately overlies the right zygomatic arch with some extension into the superior right pre maxillary soft tissues and right lateral periorbital and temporal regions.. 73 yr old female with pmh sig for aortic dissection s/p repair, htn, hld, abd aneyrysm admitted s/p mechanical fall admitted with cardiology and neurology eval and consultation #mechanical fall no acute fractures neuro workup negative orthostatic bp ordered p.t ordered, will follow #E coli UTI on IV rocephin sensitive to cipro ? change at Dc will follow p.t recs Michela Jones BPCI/TIC - BPCIA/TIC Educated pt/family on BPCIA/CIR/Med to Bed Programs: N/A Flyers given, including [facility] Beneficiary letter: N/A Pt/family verbalized understanding & agreed to program: N/A
[2018-08-11 13:51] LABS: URINE BILIRUBIN NEGATIVE (NEGATIVE); URINE BLOOD NEGATIVE (NEGATIVE); URINE GLUCOSE (UA) NEGATIVE (NEGATIVE); URINE LEUKOCYTE ESTERASE SMALL Leu/uL (NEGATIVE); URINE PROTEIN NEGATIVE mg/dL (<30 mg/dL); URINE UROBILINOGEN 0.2 E.U./dL (<1 E.U./dL)
[2018-08-11 13:53] LABS: URINE APPEARANCE CLEAR (CLEAR); URINE COLOR YELLOW (YELLOW)
[2018-08-11 14:01] LABS: URINE RBC 0 - 2 /hpf (0-2)
[2018-08-11 14:02] LABS: URINE BACTERIA MOD /hpf
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
[2018-08-11] MEDS: Meropenem IV 1 gm in NS 1 GM/50 ML BAG IVPB SCH ×2 (15:05→20:59)
--- NOTE | 2018-08-11 16:11 | PN ---
DATE: 08/11/2018 SUBJECTIVE: The patient is in [facility] in Telemetry unit room 262, bed 1. She was admitted after syncopal episode on the street, back of [facility]. The patient was brought to the emergency room by ambulance. The patient has swelling and abrasion of the right side of the face and pain associated with the swelling. The patient also has pain in the right side of the chest. The patient's past history is significant, she has had history of hypertension and hyperlipidemia. She had surgery for dissecting aortic aneurysm many years ago. She has that extends from the ascending aorta to the prerenal area that has repaired successfully in the past. The patient has past history of bariatric surgery. She has had history of anastomotic ulcer in the area where the patient's gastric bariatric surgery was performed. The patient also has history of gastritis and hypothyroidism. The patient is seen this morning. She has been evaluated by the Supervisor Machining and Neurologist currently for the cause and the plan of treatment for syncopal episode. PHYSICAL EXAMINATION: VITAL SIGNS: The pulse is 53. The patient has consistent bradycardia, blood pressure 115/72 and respirations are 18. HEENT: The patient's head is normocephalic excepting the facial evidence of contusion with multiple abrasions of the right side of the face and swelling. NECK: Thyroid is enlarged. JVP is flat. Carotid pulse is present. HEART: Normal sinus rhythm. S1 and S2, present. Sinus bradycardia. LUNGS: Trachea is central. Breath sounds are vesicular. No adventitious sounds. ABDOMEN: Soft. Liver and spleen not palpable. CENTRAL NERVOUS SYSTEM: The patient does not have any focal neurological deficit and does not have any presyncopal symptoms when standing up or ambulating at this time. The patient's x-rays are evaluated and the gate shear operator is going to evaluate the state of bradycardia. We will place the Holter monitor on the patient at this time and we will followup. MEDICATIONS: Medications consists of Ramipril 5 mg daily. The patient is on pantoprazole 40 mg daily, Rocephin 1 g IV every 24 hours, Synthroid 25 mcg daily and the patient's diet is heart healthy diet. LABORATORY DATA: Blood work, the patient white count is 4500, hemoglobin 10.8, is slow, but not significantly abnormal for her. The patient's chemistry; the renal functions are within normal limits. The BUN is 31, creatinine is 0.8 and anion gap is 9. The AST level is within normal range. TSH is 4.39 within normal range. We will continue current management evaluation by the consultants and we will followup. Gloria Ling MD
--- NOTE | 2018-08-11 18:57 | PN ---
DATE: 08/11/2018 NEUROLOGY FOLLOWUP CHIEF COMPLAINT: Status post near syncopal event. HISTORY OF PRESENT ILLNESS: This is a 73-year-old woman with a history of aortic dissection secondary to status post repair, hypertension, status post bariatric surgery, gastritis, history of osteoarthritis, history of chronic degenerative change in C5-C6 and C6-C7, history of old right frontal lobe infarct and was initially admitted because of fall to the face and she had a urinalysis which had shown ESBL producing E. coli. Denies any dysuria, but has some urinary incontinence. She also state she is very deconditioned, will need likely most likely PT. She had low systolic and diastolic blood pressures over the course of the hospital. PAST MEDICAL HISTORY: As above. SOCIAL HISTORY: No illicit drug use, smoking, or EtOH abuse. REVIEW OF SYSTEMS: A 14-point review of systems is negative except as per HPI. MEDICATIONS: Reviewed by nurse's reconciliation sheet. FAMILY HISTORY: Noncontributory. ALLERGIES: INDOMETHACIN, IODINE CONTAINING PRODUCTS. PHYSICAL EXAMINATION: GENERAL: The patient is sitting up in bed and in no acute distress. VITAL SIGNS: Temperature of 97.9, pulse rate 52, blood pressure 115/82, respiratory rate 18. HEENT: Atraumatic and normocephalic. PERRLA. Extraocular muscles intact. NECK: Supple, no JVD, no adenopathy noted. LUNGS: Clear to auscultation. No adventitious sounds. HEART: S1 and S2. Normal rate and rhythm. No murmurs, rubs, or gallops. ABDOMEN: Soft, nontender, and nondistended. Bowel sounds present. EXTREMITIES: No clubbing and no cyanosis. Peripheral pulses are 2+ bilaterally. NEUROLOGIC: The patient is alert and oriented to person, place, and year. Speech is fluent without any errors. Cranial nerves II through XII are intact. Motor exam; moves all extremities equally. Toes are downgoing bilaterally deconditioning. Sensory exam; light touch, pinprick, proprioception and vibration are intact. DTRs are 2+. Coordination was intact. No dysmetria noted. Gait is deferred for now. IMPRESSION AND PLAN: 1. This 73-year-old with history of aortic dissection, status post repair, status post bariatric surgery, hypertension, gastritis, history of B12 deficiency, history of osteophyte, cervical, and thoracic spine as well as osteoarthritis, near syncopal event in her face, most likely possible cystitis with extended-spectrum beta-lactamase producing Escherichia coli on antibiotics, and at this time should need most likely physical therapy for muscle strengthening and gait coordination exercises. 2. Monitor electrolytes and correct accordingly. 3. Avoid any hypotensive episodes and monitor heart rate since she was mildly bradycardiac at this time. Thank you for this consult. Boo Segura MD
--- NOTE | 2018-08-11 21:12 | CON ---
DATE: 08/11/2018 REASON FOR CONSULTATION: Cardiac evaluation, status post fall, rule out syncope. BRIEF CLINICAL HISTORY: This is a 73-year-old female with past medical history significant for aortic dissection, status post repair of abdominal aortic dissection, hypertension, hyperlipidemia, bariatric surgery for obesity, and anastomotic peptic ulcer disease who said who was running after the daughter to the [employer] shop and fell down, tried to save her nose and put hand in front of there, but right-sided bruise. She is not sure that she passed out, most likely not. Denies any dizziness. Denies any chest pain. Denies any shortness of breath. Denies any palpitation. PAST MEDICAL HISTORY: Significant for aortic dissection in 2001. At that time, the patient with cardiac catheterization and repair of aortic dissection only one vessels SVG to RCA was bypassed. Then, the patient had a cardiac catheterization on 05/05/2012. The patient Had NSTEMI. post endoscopy developed chest pain. Troponin 1.9, so the patient underwent cardiac catheterization, revealed one-vessel coronary artery disease, RCA is totally occluded one vessel bypass, SVG to RCA and the graft was patent, preserved LV function, and mild disease at LAD and circumflex. History of hypertension, history of open heart surgery as mentioned for aortic dissection. SOCIAL HISTORY: Denies any smoking. Denies any history of alcohol abuse. ALLERGIES: ALLERGIC TO IODINE. ALLERGIC TO INDOMETHACIN. RECENT CARDIAC WORKUP FOLLOWS: The patient had an echo on 05/14/2018 done that showed ejection fraction 60% to 65%, moderate aortic regurgitation, [id number] mitral regurgitation, multiple jet, mild tricuspid regurgitation, ejection fraction 33%. No pericardial effusion. Ascending aorta is normal, but ascending aortic valve is still consistent with repair for aortic dissection. No vegetation noted dated, 05/17/2018. PHYSICAL EXAMINATION: GENERAL: Height of the patient 5 feet 2 inches, weight of the patient 149 pounds, and body mass index 28 kg/m2. VITAL SIGNS: Temperature afebrile, hear rate 56, and blood pressure 115/42. HEENT: PERRLA. Extraocular muscles intact. NECK: Supple. No carotid bruits or thyromegaly. CHEST: Clear to auscultation. HEART: S1 and S2 regular. ABDOMEN: Soft. EXTREMITIES: Clubbing and cyanosis negative. LABORATORY DATA: Blood workup as follows; WBC 4.5, hemoglobin 10.8, hematocrit 32.5, and platelet count 174. Chemistry shows sodium 137, potassium 4.4, chloride 103, carbon dioxide 29, anion gap of 9, BUN 21, and creatinine 0.8. IMPRESSION: A 73-year-old female with past medical history significant for hypertension, hyperlipidemia, hypothyroidism, history of spontaneous aortic dissection in 2001 and 2002, status post repair. Last catheterization in 2011 when the patient after endoscopy positive troponin, patent saphenous vein graft with distal right posterior descending artery as a disease, medical treatment recommended, and admitted with syncope. RECOMMENDATIONS: We will get orthostatic hypotension, monitor in telemetry. EKG recently showed normal sinus, no acute ST-T changes noted. No evidence of acute [place]. We will follow with you. We will discontinue telemetry. Thank you Dr. Ling for providing us the opportunity in taking care of the patientNtaali. Rodo Valenzuela MD [facility]DL[facility]
[2018-08-12] MEDS: Pantoprazole 40 mg EC Tab PO SCH (05:05)
[2018-08-12] MEDS: Levothyroxine 25 MCG TAB PO SCH (05:05)
[2018-08-12] MEDS: Meropenem IV 1 gm in NS 1 GM/50 ML BAG IVPB SCH (05:05)
[2018-08-12 06:51] VITALS: O2SAT 99
--- NOTE | 2018-08-12 07:04 | CP.PCM.PN ---
Subjective - Date & Time of Evaluation Date of Evaluation: 08/12/18 Time of Evaluation: 06:15 - Subjective Subjective: Awake, no distress Reason for consultation and follow up: Cardiac evaluation for syncope, status post fall Seen and examined by me and Dr. Valenzuela Objective - Vital Signs/Intake and Output Vital Signs (last 24 hours): Temp Pulse Resp BP Pulse Ox 97.8 F 57 L 20 136/60 99 08/12/18 06:00 08/12/18 06:00 08/12/18 06:00 08/12/18 06:00 08/12/18 06:00 Intake and Output: 08/12/18 08/12/18 06:59 18:59 Intake Total 600 Balance 600 - Medications Medications: Current Medications Acetaminophen (Tylenol 325mg Tab) 650 mg PO Q4H PRN PRN Reason: Headache Last Admin: 08/11/18 20:59 Dose: 650 mg Meropenem (Merrem Iv 1 Gm Premix) 1 gm in 50 mls @ 100 mls/hr IVPB Q8 [facility]; Protocol Stop: 08/18/18 14:01 Last Admin: 08/12/18 05:05 Dose: 100 mls/hr Levothyroxine Sodium (Synthroid) 25 mcg PO 0600 [facility] Last Admin: 08/12/18 05:05 Dose: 25 mcg Pantoprazole Sodium (Protonix Ec Tab) 40 mg PO 0600 [facility] Last Admin: 08/12/18 05:05 Dose: 40 mg Ramipril (Altace) 5 mg PO DAILY [facility] Last Admin: 08/11/18 10:07 Dose: 5 mg - Labs Labs: 08/11/18 06:20 08/11/18 06:20 PT 11.0 SECONDS (9.4-12.5) 08/08/18 20:01 INR 0.99 08/08/18 20:01 APTT 32.4 Seconds (26.9-38.3) 08/08/18 20:01 - Constitutional Appears: Non-toxic, No Acute Distress - Eye Exam Additional comments: right periorbital bruising from fall - ENT Exam ENT Exam: Mucous Membranes Moist, Normal Exam - Respiratory Exam Respiratory Exam: Clear to Ausculation Bilateral, NORMAL BREATHING PATTERN - Cardiovascular Exam Cardiovascular Exam: +S1, +S2 - GI/Abdominal Exam GI & Abdominal Exam: Soft, Normal Bowel Sounds - Extremities Exam Extremities Exam: Full ROM - Neurological Exam Neurological Exam: Alert, Awake, Oriented x3 - Psychiatric Exam Psychiatric exam: Normal Affect, Normal Mood - Skin Skin Exam: Dry, Normal Color, Warm Assessment and Plan - Assessment and Plan (Free Text) Assessment: A 73 year old female who was brought to the ER due to fall. History of aortic dissection, status post repair of abdominal aortic dissection in 2001, with SVG to RCA, non-STEMI 05/05/2012, cardiac cath showed patent SVG to RCA, totally occluded RCA, mild disease of LAD and circumflex. hypertension, hyperlipidemi a,bariatric surgery for obesity, anastamotic peptic ulcer disease and gastritis. She was walking after her daughter to [employer] in [place] and fell on her face trying to save her face and placed hand in front . She is not sure if she passed out. Ruled out orthostatic hypotension. Echo on 05/14/18 showed LVEF of 60-65%, moderate AR/MR, mild TR RVSP 33mmHg, ascending aortic wall thick consistent with repair. Cardiac status stable. Plan: Denies chest pain, no distress Heart rate stable 60-70's /min Blood pressure stable, Lying BP 139/49 Sitting BP 128/50 Standing BP 154/55 Continue current treatment Continue current medications Neuro on consult Physical therapy for gait and strenghtening Will follow up Plan and treatment discussed with Dr. Valenzuela
--- NOTE | 2018-08-12 08:10 | CP.PCM.PN ---
Subjective - Date & Time of Evaluation Date of Evaluation: 08/12/18 Time of Evaluation: 07:45 - Subjective Subjective: Patient is seen this morning in room 262 bed 1. She says she is feeling better. She complains of soreness on her right side where she fell. Objective - Vital Signs/Intake and Output Vital Signs (last 24 hours): Temp Pulse Resp BP Pulse Ox 97.8 F 57 L 20 136/60 99 08/12/18 06:00 08/12/18 06:00 08/12/18 06:00 08/12/18 06:00 08/12/18 06:00 Intake and Output: 08/12/18 08/12/18 06:59 18:59 Intake Total 600 Balance 600 - Medications Medications: Current Medications Acetaminophen (Tylenol 325mg Tab) 650 mg PO Q4H PRN PRN Reason: Headache Last Admin: 08/11/18 20:59 Dose: 650 mg Aspirin (Ecotrin) 81 mg PO DAILY [facility] Meropenem (Merrem Iv 1 Gm Premix) 1 gm in 50 mls @ 100 mls/hr IVPB Q8 [facility]; Protocol Stop: 08/18/18 14:01 Last Admin: 08/12/18 05:05 Dose: 100 mls/hr Levothyroxine Sodium (Synthroid) 25 mcg PO 0600 [facility] Last Admin: 08/12/18 05:05 Dose: 25 mcg Pantoprazole Sodium (Protonix Ec Tab) 40 mg PO 0600 [facility] Last Admin: 08/12/18 05:05 Dose: 40 mg Ramipril (Altace) 5 mg PO DAILY [facility] Last Admin: 08/11/18 10:07 Dose: 5 mg - Labs Labs: 08/11/18 06:20 08/11/18 06:20 PT 11.0 SECONDS (9.4-12.5) 08/08/18 20:01 INR 0.99 08/08/18 20:01 APTT 32.4 Seconds (26.9-38.3) 08/08/18 20:01 - Constitutional Appears: No Acute Distress - Head Exam Head Exam: ATRAUMATIC, NORMOCEPHALIC - Eye Exam Eye Exam: Periorbital swelling Additional comments: swelling around right eye is improving; +bruising of right side of face - Respiratory Exam Respiratory Exam: Clear to Ausculation Bilateral, NORMAL BREATHING PATTERN - Cardiovascular Exam Cardiovascular Exam: Bradycardia, REGULAR RHYTHM, +S1, +S2 - GI/Abdominal Exam GI & Abdominal Exam: Soft, Normal Bowel Sounds. absent: Tenderness - Extremities Exam Extremities Exam: Normal Inspection - Neurological Exam Neurological Exam: Alert, Awake, Oriented x3 Assessment and Plan - Assessment and Plan (Free Text) Assessment: Syncope Fall Bruise/swelling right side of face MDR E. coli Urinary Tract Infection H/O aortic dissection H/O bariatric surgery and anastamotic ulcer Plan: Patient is seen this morning. She is feeling better. She has had evaluation by neurology and cardiology for syncope. Neurology recommends physical therapy for muscle strengthening. Urine culture is growing drug resistant E. coli. Patient seen by infectious disease and started on IV Meropenem. Repeat urinalysis shows increased WBCs from initial urinalysis. Awaiting repeat urine culture.
[2018-08-12 13:01] VITALS: BP 170/70; PULSE 59; RESP 21; TEMP 98.1
--- NOTE | 2018-08-12 13:15 | CP.PCM.PN ---
Subjective - Date & Time of Evaluation Date of Evaluation: 08/12/18 Time of Evaluation: 10:45 - Subjective Subjective: Comfortable, no dysuria, no fevers, no flank pain, no suprapubic pain, no nausea. Objective - Vital Signs/Intake and Output Vital Signs (last 24 hours): Temp Pulse Resp BP Pulse Ox 97.9 F 53 L 18 142/51 L 98 08/11/18 06:00 08/11/18 06:00 08/11/18 06:00 08/11/18 10:07 08/09/18 17:39 Intake and Output: 08/11/18 08/11/18 06:59 18:59 Intake Total 1500 Balance 1500 - Medications Medications: Current Medications Acetaminophen (Tylenol 325mg Tab) 650 mg PO Q4H PRN PRN Reason: Headache Last Admin: 08/10/18 08:16 Dose: 650 mg Meropenem (Merrem Iv 1 Gm Premix) 1 gm in 50 mls @ 100 mls/hr IVPB Q8 [facility]; Protocol Stop: 08/18/18 14:01 Levothyroxine Sodium (Synthroid) 25 mcg PO 0600 [facility] Last Admin: 08/11/18 05:55 Dose: 25 mcg Oxycodone/Acetaminophen (Percocet 5/325 Mg Tab) 1 tab PO Q4H PRN PRN Reason: Pain, moderate (4-7) Stop: 08/12/18 02:16 Last Admin: 08/10/18 21:23 Dose: 1 tab Pantoprazole Sodium (Protonix Ec Tab) 40 mg PO 0600 [facility] Last Admin: 08/11/18 05:55 Dose: 40 mg Ramipril (Altace) 5 mg PO DAILY [facility] Last Admin: 08/11/18 10:07 Dose: 5 mg - Labs Labs: 08/11/18 06:20 08/11/18 06:20 PT 11.0 SECONDS (9.4-12.5) 08/08/18 20:01 INR 0.99 08/08/18 20:01 APTT 32.4 Seconds (26.9-38.3) 08/08/18 20:01 - Constitutional Appears: Chronically Ill - Head Exam Head Exam: NORMAL INSPECTION - Respiratory Exam Respiratory Exam: Decreased Breath Sounds - Cardiovascular Exam Cardiovascular Exam: +S1, +S2 - GI/Abdominal Exam GI & Abdominal Exam: Soft. absent: Tenderness Assessment and Plan - Assessment and Plan (Free Text) Plan: Assessment possible cystitis with ESBL-producing E. coli aortic dissection S/P repair HTN S/P bariatric surgery gastritis Plan on Merrem - the repeat urine cx are negative and on in-vitro susceptibilities, the E. coli is sensitive to Cipro - we can switch to PO Levaquin for 3 days with outpatient follow up with PMD patient has no systemic signs of infection
[2018-08-13] MEDS ORDERED: levoFLOXacin 500 MG TAB PO SCH (10:00)
== END 2018-08-12 13:59 | disposition home or self-care (01) | DRG 690 ==
LOC: ED 18:12 → ERH 20:55 → 2RNO 08-09 03:21
PROVIDERS: ADMIT Internal Medicine; ATTEND Internal Medicine
DX: N30.90 Cystitis, unspecified without hematuria (principal); R55 Syncope and collapse; S00.83XA Contusion of other part of head, initial encounter; I25.10 Atherosclerotic heart disease of native coronary artery without angina pectoris; B96.20 Unspecified Escherichia coli [E. coli] as the cause of diseases classified elsewhere; I10 Essential (primary) hypertension; M47.812 Spondylosis without myelopathy or radiculopathy, cervical region; K29.70 Gastritis, unspecified, without bleeding; K28.9 Gastrojejunal ulcer, unspecified as acute or chronic, without hemorrhage or perforation; E78.5 Hyperlipidemia, unspecified; H40.9 Unspecified glaucoma; K21.9 Gastro-esophageal reflux disease without esophagitis; R32 Unspecified urinary incontinence; E03.9 Hypothyroidism, unspecified; H53.2 Diplopia; R91.1 Solitary pulmonary nodule; I25.2 Old myocardial infarction; W19.XXXA Unspecified fall, initial encounter; Y92.488 Other paved roadways as the place of occurrence of the external cause; Z98.84 Bariatric surgery status; Z79.82 Long term (current) use of aspirin; Z86.73 Personal history of transient ischemic attack (TIA), and cerebral infarction without residual deficits; Z86.79 Personal history of other diseases of the circulatory system